=== PATIENT | female | born 1970 | race Caucasian/White ===

== ENCOUNTER 2018-11-21 12:38 | Emergency (ER) | payer OTHER ==
[2018-11-21] MEDS ORDERED: KETOROLAC 30 MG/1 ML SDV IVP ONE (13:02)
[2018-11-21] MEDS ORDERED: ONDANSETRON 4 MG/2 ML VIAL IVP ONE (13:02)
[2018-11-21] MEDS ORDERED: NS 1,000 ML IV ONE (13:02)
--- NOTE | 2018-11-21 13:03 | EDPHY ---
H & P Stated Complaint: pt went in hotel room to clen that smelled of incense/began vomiting Source: Patient Exam Limitations: Language barrier (Rescue Instructor used) - Personal History LMP (Females 10-55): 22-28 Days Ago Current Tetanus Diphtheria and Acellular Pertussis (TDAP): Yes - Medical/Surgical History Hx Asthma: No Hx Chronic Respiratory Disease: No Hx Diabetes: Yes Hx Cardiac Disease: No Hx Renal Disease: No Hx Cirrhosis: No Hx Alcoholism: No Hx HIV/AIDS: No Hx Splenectomy or Spleen Trauma: No Other PMH: htn choly diab - Family History Significant Family History: No pertinent family hx - Social History Smoking Status: Never smoked Alcohol Use: None Time Seen by Provider: 11/21/18 12:58 HPI/ROS: CHIEF COMPLAINT: Nausea vomiting HISTORY OF PRESENT ILLNESS: The patient is a 48-year-old Georgian-speaking female with a history of cholecystectomy who comes to the emergency department complaining of nausea vomiting for the last hour and half. She states that she has vomited 6 times. No diarrhea. No fever. Her symptoms began after injuring hotel room to clean it and smelling a strong smell of incense. She has had trouble with strong flat we smells before but nothing this bad. She states that her sugars have been controlled in the 120s. No recent illness prior to this morning. Severity: Severe Modifying factors: None REVIEW OF SYSTEMS: Constitutional: denies: chills, fever, recent illness, recent injury EENTM: denies: blurred vision, double vision, nose congestion Respiratory: denies: cough, shortness of breath Cardiac: denies: chest pain, irregular heart rate, lightheadedness, palpitations Gastrointestinal/Abdominal: See HPI Genitourinary: denies: dysuria, frequency, hematuria, pain Musculoskeletal: denies: joint pain, muscle pain Skin: denies: lesions, rash, jaundice, bruising Neurological: denies: headache, numbness, paresthesia, tingling, dizziness, weakness Hematologic/Lymphatic: denies: blood clots, easy bleeding, easy bruising Immunologic/allergic: denies: HIV/AIDS, transplant 10 systems reviewed and negative except as noted EXAM: GENERAL: Uncomfortable, moderate distress HEAD: Atraumatic, normocephalic. EYES: Pupils equal round and reactive to light, extraocular movements intact, sclera anicteric, conjunctiva are normal. ENT: TMs normal, nares patent, oropharynx clear without exudates. Moist mucous membranes. NECK: Normal range of motion, supple without lymphadenopathy or JVD. LUNGS: Breath sounds clear to auscultation bilaterally and equal. No wheezes rales or rhonchi. HEART: Regular rate and rhythm without murmurs, rubs or gallops. ABDOMEN: Soft, nontender, normoactive bowel sounds. No guarding, no rebound. No masses appreciated. BACK: No CVA tenderness, no spinal tenderness, step-offs or deformities EXTREMITIES: Normal range of motion, no pitting or edema. No clubbing or cyanosis. NEUROLOGICAL: Cranial nerves II through XII grossly intact. Normal speech, normal gait. 5/5 strength, normal movement in all extremities, normal sensation , normal reflexes PSYCH: Normal mood, normal affect. SKIN: Warm, dry, normal turgor, no visible rashes or lesions. (Augusto Vences) Constitutional: Initial Vital Signs Temperature (C) 36.4 C 11/21/18 12:41 Heart Rate 94 11/21/18 12:41 Respiratory Rate 18 11/21/18 12:41 Blood Pressure 179/118 H 11/21/18 12:41 O2 Sat (%) 92 11/21/18 12:41 O2 Delivery Mode Room Air Allergies/Adverse Reactions: No Known Allergies Allergy (Unverified 11/21/18 12:39) Home Medications: Medication Instructions Recorded Glipizide 11/21/18 Lisinopril 11/21/18 Metformin 1000 mg 11/21/18 Metoclopramide [Reglan 10 mg tab 10 mg PO BID PRN 7 Days tab 11/21/18 (RX)] Medical Decision Making - Diagnostics Imaging: Discussed imaging studies w/ order desk caller Radiologist - Diagnostics EKG Interpretation: An EKG obtained and was read and documented in trace view. Please see trace view for full reading and report. Sinus rhythm, no acute ischemic changes ( Augusto Vences) ED Course/Re-evaluation: Care was signed over to me by Dr. Vences. She was just receiving IV Reglan. On re-evaluation by me at 4:20 p.m. Patient has no nausea or vomiting. No abdominal pain. Patient and I discussed laboratory evaluation, imaging study results, treatment plan including criteria for return importance of follow-up and further evaluation. She expresses understanding and agreement. She feels well to be discharged (Albino Sarabia) The patient is feeling better but still not completely well. She vomited once after receiving Zofran. Will treat with Reglan and observe and p.o. Challenge. Discussed her CT results which are reassuring. (Augusto Vences) Differential Diagnosis: Partial list of the Differential diagnosis considered include but were not limited to; gastroenteritis, food poisoning, peptic ulcer disease and although unlikely based on the history and physical exam, I also considered biliary disease, pancreatitis, acute coronary disease, PE, dissection. (Augusto Vences) - Data Points Laboratory Results: Laboratory Results 11/21/18 13:00 11/21/18 13:00 Medications Given: Discontinued Medications Sodium Chloride (Ns) 1,000 mls @ 0 mls/hr IV EDNOW ONE; Wide Open PRN Reason: Protocol Stop: 11/21/18 13:03 Last Admin: 11/21/18 13:20 Dose: 1,000 mls Ketorolac Tromethamine (Toradol) 15 mg IVP EDNOW ONE Stop: 11/21/18 13:03 Last Admin: 11/21/18 13:20 Dose: 15 mg Metoclopramide HCl (Reglan Injection) 10 mg IVP EDNOW ONE Stop: 11/21/18 16:00 Last Admin: 11/21/18 16:04 Dose: 10 mg Ondansetron HCl (Zofran) 4 mg IVP EDNOW ONE Stop: 11/21/18 13:03 Last Admin: 11/21/18 13:20 Dose: 4 mg Departure - Departure Disposition: Home, Routine, Self-Care Clinical Impression: Vomiting Qualifiers: Vomiting type: unspecified Vomiting Intractability: non-intractable Nausea presence: with nausea Qualified Code(s): R11.2 - Nausea with vomiting, unspecified Condition: Fair Instructions: Acute Nausea and Vomiting (ED) Additional Instructions: Frequent, small sips fluids. Gradual diet advancement Reglan if needed for nausea and vomiting Return for worsening symptoms including abdominal pain or further vomiting. Recheck in 1 day if not improved Bessie pequenos sorbos de liquido, frecuentemente. Avanzar la dieta gradualmente. Reglan si es necesario para nausea y vomito. Regrese si los sintomas empeoran, incluyendo dolor abdominal o mas vomitos. Visite chaney consultorio de atencion primaria en 1 lucas si no blevins lacy. Referrals: NONE *PRIMARY CARE P,. [Primary Care Provider] - As per Instructions [facility],. [Clinic] - 1 day, if not improved Prescriptions: Metoclopramide [Reglan 10 mg tab (RX)] 10 mg PO BID PRN 7 Days tab PRN Reason: *Nausea & Vomiting
[2018-11-21] MEDS ORDERED: KETOROLAC 15 MG/1 ML SDV ONE (13:09)
[2018-11-21 13:10] LABS: PLATELET COUNT 428 10^3/uL (150-400)
--- NOTE | 2018-11-21 13:49 | CPEKG ---
Test Reason : OPEN Blood Pressure : / mmHG Vent. Rate : 090 BPM Atrial Rate : 090 BPM P-R Int : 171 ms QRS Dur : 094 ms QT Int : 383 ms P-R-T Axes : 038 -11 -02 degrees QTc Int : 469 ms Sinus rhythm Confirmed by Jenny Guzman ([id number]) on 11/21/2018 1:48:56 PM Referred By: JENNY GUZMAN Confirmed By:Jenny Guzman
[2018-11-21] MEDS ORDERED: IOPAMIDOL (ISOVUE-300) 100 ML BTL ONE (13:52)
[2018-11-21] MEDS ORDERED: METOCLOPRAMIDE 10 MG/2 ML VIAL ONE (15:02)
[2018-11-21] MEDS ORDERED: METOCLOPRAMIDE 10 MG/2 ML VIAL IVP ONE (15:59)
[2018-11-21 16:53] VITALS: BP 131/79
== END 2018-11-21 16:51 | disposition home or self-care (01) ==
DX: R11.2 Nausea with vomiting, unspecified (principal)
CPT/HCPCS: 96374; J1885; J2405; J2765; Q9967